=== PATIENT | male | born 1975 | race Caucasian/White ===

== ENCOUNTER 2017-05-16 09:30 | Outpatient (CLI) | payer OTHER ==
--- NOTE | 2017-05-16 14:05 | MRI Report ---
MRI LUMBAR SPINE WITHOUT CONTRAST INDICATION: 41-year-old male with low back pain and intermittent pain to both legs. Has known degener ative disk at L4-L5. TECHNIQUE: 1. Sagittal STIR, T1 and T2. 2. Axial T1 and T2. COMPARISON: 08/11/2011 FINDINGS: There appear to be 5 [id number], lumbar-type vertebrae. There is a mild levoconvex lumbar curvature with apex at the L3-L4 disk level, unchanged. In the sagi ttal plane again demonstrated is minor retrolisthesis of L4 on L5, stable. Alignment is otherwise unr emarkable. Degenerative changes again demonstrated in the L4-L5 disk with [id number] disk space narrowing. The lumbar disks otherwise appear well-hydrated and the disk space heights preserved. There is minor, type I reactive marrow change in the vertebral endplates at L4-L5. The marrow signal intensity is otherwise unremarkable. The conus terminates in appropriate fashion above the L1-L2 disk level. There is no abnormal thickeni ng or lipomatous change of the filum. Axial Images: L2-L3: No disk herniation. No spinal canal or foraminal stenosis. L3-L4: There is minor intraforaminal disk displacement on the left, unchanged. No associated foramina l stenosis. No spinal stenosis. L4-L5: A prominent fissure is identified in the posterior central anulus. There is a small, central/l eft paracentral extrusion. The extrusion appears decreased in size when compared to the previous exam ination. At this time, it projects posteriorly into the spinal canal for up to about 2.5 mm, compared to about 4 mm on the previous examination. No associated central zone spinal stenosis and no signifi cant subarticular zone narrowing. Suspect early degenerative change in the facet joints. No significa nt associated bony hypertrophy. Small right intraforaminal/extraforaminal protrusion, unchanged. Mild bilateral foraminal stenoses. L5-S1: No disk herniation or spinal stenosis. Degenerative facet arthrosis with mild left facet hyper trophy. No foraminal compromise. IMPRESSION: 1. Interval decrease in size of central/left paracentral extrusion at L4-L5. No central zone spinal s tenosis or significant subarticular zone narrowing at this time. No evidence of neural impingement. 2. Otherwise, essentially stable appearance of the lumbar spine when compared to previous study 08/11. In particular, no new disk herniation or new stenosis is demonstrated. Referring Provider Line: [phone] SITE ID: [id number]
== END 2017-05-16 09:31 | disposition home or self-care (01) ==
LOC: DI 09:30
PROVIDERS: ATTEND Physical Medicine & Rehabilitation Pain Medicine
DX: M51.26 Other intervertebral disc displacement, lumbar region (principal); M43.07 Spondylolysis, lumbosacral region
CPT/HCPCS: 72148